=== PATIENT | female | born 1980 | race Caucasian/White ===

== ENCOUNTER 2021-10-19 07:44 | Observation (INO) | payer BC ==
[2021-10-16 10:45] LABS: BASOPHILS % (AUTO) 0.7 % (0-1); EOSINOPHILS # (AUTO) 0.2 X10'3 (0-0.9); EOSINOPHILS % (AUTO) 4.6 % (0-6); LYMPHOCYTES % (AUTO) 43.8 % (21-51); MEAN CORPUSCULAR HEMOGLOBIN 30.5 PG (27.0-31.0); MEAN CORPUSCULAR HGB CONC 34.2 g/dL (33.0-36.5); MEAN CORPUSCULAR VOLUME 89.1 FL (78-98); MONOCYTES # (AUTO) 0.3 X10'3 (0-0.9); MONOCYTES % (AUTO) 7.5 % (2-12); NEUTROPHILS % (AUTO) 43.4 % (42-75); PRE OP HEMOGLOBIN 14.4 g/dL (12.0-16.0); PRE OP PLATELET COUNT 218 X10'3 (140-440); RED BLOOD COUNT 4.72 X10'6 (4.20-5.60); RED CELL DISTRIBUTION WIDTH 12.9 % (11.5-14.5)
[2021-10-16 10:56] LABS: HCG SERUM QL NEGATIVE
[2021-10-16 11:05] LABS: ALBUMIN 4.2 G/DL (3.4-5.0); ALBUMIN/GLOBULIN RATIO 1.2 (1.1-1.5); ALKALINE PHOSPHATASE 65 IU/L (46-116); BLOOD UREA NITROGEN 11 MG/DL (7-18); BUN/CREATININE RATIO 12.6 (6.6-38.0); CHLORIDE 106 MMOL/L (99-107); CREATININE 0.87 MG/DL (0.40-0.90); PRE OP ALT 17 U/L (30-65); PRE OP ANION GAP 9 (8-16); PRE OP AST 16 U/L (10-37); PRE OP BILIRUB, TOTAL 0.6 MG/DL (0.0-1.0); PRE OP GLUCOSE 98 MG/DL (70-104); PRE OP POTASSIUM 3.9 MMOL/L (3.4-5.1); PRE OP SODIUM 140 MMOL/L (135-145); TOTAL PROTEIN 7.8 G/DL (6.4-8.2); eGFR 72 ML/MIN
[~2021-10-19] VITALS: Ht 165.1 cm; Wt 63.0 kg
[2021-10-19] VITALS (27 sets, daily range): BP systolic 102–136; BP diastolic 55–81
[~2021-10-19 07:44] MED LIST: L THYROXINE PO; LIOT25TA12 PO; MAGN500C4 PO; MULT-1085 PO; PRAS25CA PO; RED600TA PO; acetaminophen 325mg tablet PO ONE; ceFOXitin 2GM-NS 100mL ADDvant 100 ML IV ONE; celeCOXIB 100mg capsule PO ONE; famotidine 20mg tablet PO ONE; gabapentin 300mg capsule PO ONE; phenazopyridine 100mg tablet PO ONE; ringers solution, lacted 1,000 ML IV SCH
[2021-10-19] MEDS ORDERED: BUPIVAcaine/PF 5 mg/ml 10ml ONE (11:48)
[2021-10-19] MEDS ORDERED: ceFAZolin 1000mg inj ONE (11:48)
[2021-10-19] MEDS ORDERED: rocuronium 10mg/ml inj IV ONE ×2 (12:03→12:04)
[2021-10-19] MEDS ORDERED: sevoflurane 250ml liquid IH ONE (12:03)
[2021-10-19] MEDS ORDERED: fentaNYL /PF 50mcg/ml 5ml ampule ONE (12:04)
[2021-10-19] MEDS ORDERED: midazolam 1 mg/ML 2ml injection ONE (12:04)
[2021-10-19] MEDS ORDERED: propofol inj 20 ML IV ONE (12:04)
[2021-10-19] MEDS ORDERED: vasoPRESSIN 20 units/ml inj. ONE (12:48)
[2021-10-19] MEDS ORDERED: meperidine/PF 25mg/ml syringe IV PRN ×3 (14:15)
[2021-10-19] MEDS ORDERED: ringers solution, lacted 1,000 ML IV SCH (14:15)
[2021-10-19] MEDS ORDERED: proCHLORperazine 10 MG/2 ml inj IV PRN (14:15)
[2021-10-19] MEDS ORDERED: ondansetron/PF 4mg/2ml inj IV PRN ×2 (14:15→15:25)
[2021-10-19] MEDS ORDERED: morphine 2 MG/ML inj. syringe IV PRN (14:15)
[2021-10-19] MEDS ORDERED: morphine 4 MG/ML inj SYRINge IV PRN (14:15)
[2021-10-19] MEDS ORDERED: ondansetron/PF 4mg/2ml inj ONE (14:59)
[2021-10-19] MEDS ORDERED: dexamethasone sod phosphate 4mg/ml inj. ONE (14:59)
[2021-10-19] MEDS ORDERED: acetaminophen 1,000mg/100ml IV 100 ML IV ONE (15:02)
[2021-10-19] MEDS ORDERED: neostigmine methylsulfate 1 MG/ML 10ml vial ONE (15:10)
[2021-10-19] MEDS ORDERED: glycopyrrolate 0.2mg/ml inj ONE (15:10)
[2021-10-19] MEDS ORDERED: temazepam 15mg capsule PO PRN (15:25)
[2021-10-19] MEDS ORDERED: naloxone 0.4 mg/ml inj IV PRN (15:25)
[2021-10-19] MEDS ORDERED: mag hydrox/Alum hydrox/simeth 30ml oral suspension PO PRN (15:25)
[2021-10-19] MEDS ORDERED: phenazopyridine 100mg tablet PO PRN (15:25)
[2021-10-19] MEDS ORDERED: LORazepam 2 mg/ml vial IV PRN (15:25)
[2021-10-19] MEDS ORDERED: oxyCODONE IR 5mg (immed. release) tablet PO PRN ×2 (15:25)
[2021-10-19] MEDS ORDERED: HYDROmorphone inj. 0.5 MG/0.5 ML DISP.SYRIN IV PRN (15:25)
[2021-10-19] MEDS ORDERED: diphenhydrAMINE 50 mg/ml inj IV PRN (15:25)
--- NOTE | 2021-10-19 15:27 | NUR ---
Received from OR via BED IN STABLE CONDITION , accompanied by Anesthesiologist and FOUNDRY FINISHER report given by FOUNDRY FINISHER AND Anesthesiolgist. Addendum: 10/19/21 at 1713 by Yoli Sheridan RN Amended: Links added.
--- NOTE | 2021-10-19 17:33 | NUR ---
Patient in room . I have received report from Felisha RN and had the opportunity to ask questions and awaiting patients arrival
[2021-10-19] MEDS: simethicone 80mg chew tab PO SCH (18:03)
--- NOTE | 2021-10-19 18:06 | NUR ---
PATIENT DISCHARGED FROM PACU AFTER REPORT GIVEN TO RN TAKING OVER PATIENTS CARE. PATIENT TRANSFERRED TO ROOM [facility] VIA BED WITH ORDERLIES X2. Addendum: 10/19/21 at 1808 by Yoli Sheridan RN Amended: Links added.
--- NOTE | 2021-10-19 18:20 | NUR ---
Patient in room ORTHO 4011. I have received report from DECLAN Fonseca and had the opportunity to ask questions and assume patient care.
--- NOTE | 2021-10-19 18:37 | NUR ---
patient orientated to room. present. C/O pain 09/23, medicated as per EMAR. 3 laparoscopic incision with Dermabond CDI. . VSS. Report given to Jessa MANRIQUEZ
[2021-10-19] MEDS: docusate sod 100mg capsule PO SCH (19:43)
--- NOTE | 2021-10-19 19:50 | NUR ---
I called the Pharmacist with question regarding the Tylenol Po dose that is scheduled. She said it is a substitute for 1000mg dose ordered and the 975mg dose is within the max dose of Tylenol allowance.
[2021-10-19] MEDS: acetaminophen 325mg tablet PO SCH (19:55)
[2021-10-19] MEDS: ketorolac trometh. 30mg/ml inj. IV SCH (19:57)
--- NOTE | 2021-10-19 20:10 | NUR ---
Did put in order for no sugar or gluten diet per patient request.
[2021-10-19] MEDS: ringers solution, lacted 1,000 ML IV SCH (23:25)
[2021-10-20] VITALS: BP 117/59
--- NOTE | 2021-10-20 01:09 | NUR ---
Agree with Jessa HAAS physical assessment except where I added my own findings.
[2021-10-20] MEDS: ketorolac trometh. 30mg/ml inj. IV SCH ×2 (02:01→08:43)
[2021-10-20] MEDS: ringers solution, lacted 1,000 ML IV SCH (02:03)
[2021-10-20] MEDS: acetaminophen 325mg tablet PO SCH ×2 (02:03→08:42)
[2021-10-20 04:00] VITALS: BP 105/63
--- NOTE | 2021-10-20 06:19 | NUR ---
Problems reprioritized. Patient report given, questions answered & plan of care reviewed with SAMINA Soliz. Addendum: 10/20/21 at 0648 by Jessa Oneil LVN Correction Problems reprioritized. Patient report given, questions answered & plan of care reviewed with DECLAN Sauer.
[2021-10-20] MEDS: simethicone 80mg chew tab PO SCH (08:41)
[2021-10-20] MEDS: docusate sod 100mg capsule PO SCH (08:42)
[2021-10-20 10:00] VITALS: BP 105/60
[2021-10-20 10:49] LABS: BASOPHILS % (AUTO) 0.3 % (0-1); EOSINOPHILS # (AUTO) 0.1 X10'3 (0-0.9); EOSINOPHILS % (AUTO) 1.1 % (0-6); HEMATOCRIT 35.7 % (35.0-45.0); LYMPHOCYTES # (AUTO) 2.6 X10'3 (1.1-4.8); LYMPHOCYTES % (AUTO) 29.6 % (21-51); MEAN CORPUSCULAR HEMOGLOBIN 30.5 PG (27.0-31.0); MEAN CORPUSCULAR HGB CONC 33.6 g/dL (33.0-36.5); MEAN CORPUSCULAR VOLUME 90.7 FL (78-98); MEAN PLATELET VOLUME 8.4 FL (7.4-10.4); MONOCYTES # (AUTO) 0.7 X10'3 (0-0.9); MONOCYTES % (AUTO) 7.5 % (2-12); NEUTROPHILS # (AUTO) 5.4 X10'3 (1.8-7.7); NEUTROPHILS % (AUTO) 61.5 % (42-75); PLATELET COUNT 197 X10'3 (140-440); RED BLOOD COUNT 3.94 X10'6 (4.20-5.60); RED CELL DISTRIBUTION WIDTH 13.2 % (11.5-14.5); WHITE BLOOD COUNT 8.7 X10'3 (4.5-11.0)
[2021-10-20 11:05] LABS: ALBUMIN 3.3 G/DL (3.4-5.0); ANION GAP 8 (8-16); BLOOD UREA NITROGEN 10 MG/DL (7-18); BUN/CREATININE RATIO 10.8 (6.6-38.0); CALCIUM 8.4 MG/DL (8.5-10.1); CHLORIDE 107 MMOL/L (99-107); CREATININE 0.93 MG/DL (0.40-0.90); GLUCOSE 98 MG/DL (70-104); POTASSIUM 4.2 MMOL/L (3.5-5.1); SODIUM 140 MMOL/L (135-145); TOTAL CARBON DIOXIDE 25.1 MMOL/L (24-32); eGFR 67 ML/MIN
--- NOTE | 2021-10-20 11:24 | NUR ---
called and notified of labs.
== END 2021-10-20 11:34 | disposition home or self-care (01) ==
LOC: PAS 07:44 → INTOOBSV 15:21 → PAS 15:21 → ORTHO 4S 15:21 → UNDOADMOB 15:21 → ORTHO 4S 15:36 → UNDODISOB 10-20 11:34
PROVIDERS: ADMIT Obstetrics & Gynecology; ATTEND Obstetrics & Gynecology
PROC: 0UT9FZZ Resection of Uterus, Via Natural or Artificial Opening With Percutaneous Endoscopic Assistance (ICD-10-PCS; principal; 2021-10-19 12:03)
DX: N80.0 Endometriosis of uterus (principal); N94.6 Dysmenorrhea, unspecified; N92.0 Excessive and frequent menstruation with regular cycle
CPT/HCPCS: 36415; 57425; 58552; 80048; 80053; 82948; 84703; 85025; 86885; 86900; 86901; 87811; 96374; 96375; 96376; C1758; G0378; G0379; J0131; J0690; J0694; J1100; J1170; J1885; J2175; J2250; J2270; J2405; J2704; J2710; J3010; J3490; J7120; A4618; A7000